=== PATIENT | female | born 1990 ===

== ENCOUNTER 2025-08-05 15:04 | Emergency (ER) | payer OTHER ==
[~2025-08-05] VITALS: Ht 172.7 cm; Wt 68.0 kg
[2025-08-05 15:18] VITALS: BP 115/82
[2025-08-05 15:53] LABS: PLATELET COUNT (AUTO) 219 K/uL (179-408); RED BLOOD CELL COUNT(AUTO) 4.60 MIL/uL (3.63-4.92); RED CELL DISTRIBUTION WIDTH 13.6 % (12.3-17.7); WHITE BLOOD COUNT (AUTO) 5.1 K/uL (3.8-11.8)
[2025-08-05 16:00] LABS: CREATININE 0.7 mg/dL (0.6-1.3); SODIUM SERUM 141.0 mmol/L (136-145); UREA NITROGEN, BLOOD 11.0 mg/dL (7-18)
[2025-08-05 16:06] LABS: ASPARTATE AMINOTRANSFERASE 10.0 U/L (15-37); TOTAL PROTEIN, SERUM 8.1 g/dL (6.4-8.2)
[2025-08-05] MEDS ORDERED: SIME80TA15 PO (16:36)
[2025-08-05] MEDS ORDERED: [UNRECOGNIZED DRUG - CODE] PO (16:36)
[2025-08-05 17:13] VITALS: BP 113/78; TEMP 209.7; O2SAT 99
== END 2025-08-05 17:15 | disposition home or self-care (01) ==
LOC: ER 15:20
DX: O09.511 Supervision of elderly primigravida, first trimester (principal); Z3A.00 Weeks of gestation of pregnancy not specified
CPT/HCPCS: 36415; 74021; 85025; A4606; A4663